=== PATIENT | female | born 1970 | race Caucasian/White ===

== ENCOUNTER 2020-04-23 03:25 | Emergency (ER) | payer OTHER ==
[~2020-04-23] VITALS: Ht 160 cm; Wt 79.6 kg
[2020-04-23 03:26] VITALS: BP 167/92
[2020-04-23] MEDS ORDERED: BOOSTRIX/ADACEL VACCINE (DIPHTH/PERTUSS/ACELL/TETANUS) 0.5ML SYR IM ONE (04:15)
--- NOTE | 2020-04-23 04:26 | REPVR ---
PROCEDURE INFORMATION: Exam: CT Cervical Spine Without Contrast Exam date and time: 04/23/2020 3:48 AM Age: 49 years old Clinical indication: Injury or trauma; Fall; Initial encounter; Blunt trauma TECHNIQUE: Imaging protocol: Computed tomography images of the cervical spine without contrast. Radiation optimization: All CT scans at this facility use at least one of these dose optimization techniques: automated exposure control; mA and/or kV adjustment per patient size (includes targeted exams where dose is matched to clinical indication); or iterative reconstruction. COMPARISON: No relevant prior studies available. FINDINGS: Vertebrae: There is normal alignment of the visualized spine. Discs/Spinal canal/Neural foramina: There is narrowing of the C5-C6 disc with endplate spurs, subchondral sclerosis, and small cystic changes. There is a disc osteophyte complex, asymmetric to the left which does not result in significant spinal canal stenosis but results in neural foraminal narrowing, left more than right. Prevertebral Space: The prevertebral soft tissues appear normal. Soft tissues: The paraspinous soft tissues appear unremarkable. Thyroid: There is a low-attenuation 11 mm nodule in the left lobe of the thyroid. Lungs: The visualized lung apices are clear. IMPRESSION: 1. Normal alignment. No fractures identified. 2. Evidence of degenerative disc disease at C5-C6. 3. 11 mm nodule in the left lobe of the thyroid. No follow-up is recommended for a nodule of this size. COMMENTS: Consistent with the [employer]'s Incidental Findings Committee white paper (J Am Enrique Radiol 2015): In patients aged 35 years and older with an incidental thyroid nodule equal to or greater than 1.[address], MRI or extrathyroidal US, further evaluation with dedicated thyroid US is recommended for patients with normal life expectancy and without comorbidities. For smaller nodules without suspicious features, no further evaluation or follow up is recommended. Electronically signed by: Padmini Mary On 04/23/2020 04:26:09 AM
--- NOTE | 2020-04-23 04:29 | REPVR ---
PROCEDURE INFORMATION: Exam: CT Head Without Contrast Exam date and time: 04/23/2020 3:48 AM Age: 49 years old Clinical indication: Injury or trauma; Fall; Initial encounter; Blunt trauma (contusions or hematomas) TECHNIQUE: Imaging protocol: Computed tomography of the head without contrast. Radiation optimization: All CT scans at this facility use at least one of these dose optimization techniques: automated exposure control; mA and/or kV adjustment per patient size (includes targeted exams where dose is matched to clinical indication); or iterative reconstruction. COMPARISON: No relevant prior studies available. FINDINGS: Limitations: There is artifact affecting the assessment of the posterior fossa. Brain: The cortical/white matter interfaces are preserved throughout the brain. There is no evidence of intracranial hemorrhage. Cerebral ventricles: The ventricular system is normal in size and configuration. Bones/joints: No acute fractures of the skull are identified. Paranasal sinuses: There is minimal mucoperiosteal thickening in the visualized paranasal sinuses. No fluid levels. Mastoid air cells: The mastoid air cells are clear. Soft tissues: There is a large, heterogeneously hyperdense area of soft tissue swelling in the anterior right frontal region, indicating a large superficial hematoma. IMPRESSION: 1. Large right frontal superficial hematoma. 2. No evidence of acute intracranial injury. Electronically signed by: Padmini Mary On 04/23/2020 04:29:14 AM
--- NOTE | 2020-04-24 07:36 | ED PDOC ---
Post-Departure Follow-Up certiifed letter sent to pt re formal read of ct c spine. pt needs fu for thyroi d nodule. please obtain pcp name and fax. if no pcp refer to [facility] and fax Jerome Maldonado MD Apr 24, 2020 07:36
== END 2020-04-23 05:13 | disposition home or self-care (01) ==
LOC: M ED 03:25
DX: S01.01XA Laceration without foreign body of scalp, initial encounter (principal); W10.1XXA Fall (on)(from) sidewalk curb, initial encounter; Y92.410 Unspecified street and highway as the place of occurrence of the external cause; Y93.89 Activity, other specified; Y99.8 Other external cause status; Z88.2 Allergy status to sulfonamides

== ENCOUNTER → 2020-06-09 | Outpatient (CLI) | payer OTHER ==
--- NOTE | 2020-06-09 16:43 | REP ---
INDICATION: E04.1THYROID NODULE. COMPARISON: None FINDINGS: The right lobe of the thyroid gland measures 4.2 x 1.4 x 1.7 cm. The left lobe of the thyroid gland measures 3.9 x 1.8 x 1.2 cm. The isthmus measures 2.9 mm. In the left lobe of the thyroid gland there is a multi septated anechoic structure which measures 1.5 x 1 x 0.8 cm. The lower pole there is a complex 5 x 5.1 x 3.6 mm sized complex appearing cyst. In the midpole/lower pole there is an additional 3 mm sized echogenic focus. In the right lobe of the thyroid gland in the lower pole there is a 3.4 x 3.6 x 1.8 mm sized tiny nodule. Multiple mm sized cystic structures and tiny nodules are seen in both lobes. IMPRESSION: As above. <Electronically signed by Huang Cruz > 06/09/20 [id number]
== END ==
LOC: M WHC 14:50
PROVIDERS: ATTEND Student in an Organized Health Care Education/Training Program
DX: E04.1 Nontoxic single thyroid nodule (principal)

== ENCOUNTER → 2021-02-28 | Outpatient (CLI) | payer BC ==
[~2021-02-28] MED LIST: HYDR-643 PO; LEXA1TAB PO
== END ==
LOC: M WHC 10:21
PROVIDERS: ATTEND Student in an Organized Health Care Education/Training Program
DX: R92.2 Inconclusive mammogram (principal); N60.02 Solitary cyst of left breast

== ENCOUNTER → 2021-03-20 | Outpatient (CLI) | payer BC ==
--- NOTE | 2021-03-20 15:37 | REP ---
INDICATION: ATTN RADIAL HEAD, EVAL FX FOR HEALING. COMPARISON: 09/20/2020 TECHNIQUE: Axial noncontrast images through the elbow with coronal and sagittal reformations. FINDINGS: Previous proximal radial fracture with intra-articular component now demonstrates significant healing and fusion to the radius, but demonstrates a residual 2-3 mm cortical disruption/cleft with sclerotic margins extending through the articular surface. Surrounding soft tissues are relatively normal and without obvious significant residual inflammatory change. No obvious effusion. IMPRESSION: Relatively healed proximal radial fracture with residual formed chronic cleft extending into the central articular surface. <Electronically signed by Levi Moreno > 03/20/21 [id number]
== END ==
LOC: M RAD 15:03
PROVIDERS: ATTEND Orthopaedic Surgery
DX: G56.21 Lesion of ulnar nerve, right upper limb (principal); S52.591D Other fractures of lower end of right radius, subsequent encounter for closed fracture with routine healing; Y92.9 Unspecified place or not applicable; Y93.9 Activity, unspecified; Y99.9 Unspecified external cause status

== ENCOUNTER → 2021-04-19 | Outpatient (CLI) | payer BC ==
[2021-04-19 10:50] LABS: BASO # 0.1 10^3/uL (0.0-0.2); BASO % 1.2 % (0.0-1.0); EOS # 0.2 10^3/uL (0.0-0.5); EOS % 3.6 % (0.0-3.0); HEMATOCRIT 41.8 % (36.0-47.0); HEMOGLOBIN 13.2 g/dl (12.0-15.5); LYMPH # 1.4 10^3/uL (1.5-5.0); LYMPH % 27.5 % (24.0-44.0); MEAN CORPUSCULAR HEMOGLOBIN 27.3 pg (27.0-33.0); MEAN CORPUSCULAR HGB CONC 31.6 g/dl (32.0-36.5); MEAN CORPUSCULAR VOLUME 86.5 fl (80.0-96.0); MONO # 0.3 10^3/uL (0.0-0.8); MONO % 6.4 % (2.0-8.0); NEUTROPHILS # 3.1 10^3/uL (1.5-8.5); NEUTROPHILS % 61.1 % (36.0-66.0); PLATELET COUNT, AUTOMATED 393 10^3/uL (150-450); RED BLOOD COUNT 4.83 10^6/uL (4.00-5.40)
[2021-04-19 11:01] LABS: INR 0.96; PROTHROMBIN TIME 13.2 SECONDS (12.7-14.5)
[2021-04-19 11:02] LABS: PARTIAL THROMBOPLASTIN TIME 31.1 SECONDS (25.9-37.0)
[2021-04-19 11:09] LABS: ALBUMIN 4.4 GM/DL (3.2-5.2); ALT/SGPT 17 U/L (12-78); BILIRUBIN,TOTAL 0.3 MG/DL (0.2-1.0); BLOOD UREA NITROGEN 13 MG/DL (7-18); CALCIUM LEVEL 9.7 MG/DL (8.5-10.1); CARBON DIOXIDE LEVEL 28 MEQ/L (21-32); CHLORIDE LEVEL 106 MEQ/L (98-107); CHOLESTEROL LEVEL 261 MG/DL (<200); CREATININE FOR GFR 0.77 MG/DL (0.55-1.30); GLOMERULAR FILTRATION RATE > 60.0 (>51); GLUCOSE, FASTING 88 MG/DL (70-100); HDL CHOLESTEROL 58 MG/DL (>40); LDL CHOLESTEROL 172 MG/DL (<100); NON-HDL-C 203 MG/DL; POTASSIUM SERUM 4.2 MEQ/L (3.5-5.1); SODIUM LEVEL 139 MEQ/L (136-145); TRIGLYCERIDES LEVEL 155 MG/DL (<150)
== END ==
LOC: M LAB 08:04
PROVIDERS: ATTEND Physician Assistant
DX: D68.59 Other primary thrombophilia (principal); R07.9 Chest pain, unspecified

== ENCOUNTER → 2021-05-09 | Outpatient (CLI) | payer BC | LOC: M LABSMTC 09:59 | PROVIDERS: ATTEND Anesthesiology | DX: Z01.812 Encounter for preprocedural laboratory examination (principal) ==

== ENCOUNTER → 2021-05-25 | Outpatient (CLI) | payer BC | LOC: M OUTALCOH 08:01 | PROVIDERS: ATTEND Psychiatry & Neurology Psychiatry | DX: F10.10 Alcohol abuse, uncomplicated (principal) ==

== ENCOUNTER → 2021-05-29 | Outpatient (REF) | payer BC | LOC: M SFHCPLAZ 09:51 | PROVIDERS: ATTEND Physician Assistant | DX: R39.9 Unspecified symptoms and signs involving the genitourinary system (principal) ==

== ENCOUNTER → 2021-06-26 | Outpatient (RCR) | payer BC | LOC: M OUTALCOH 06-04 15:07 | PROVIDERS: ATTEND Psychiatry & Neurology Psychiatry | DX: F10.10 Alcohol abuse, uncomplicated (principal) ==

== ENCOUNTER → 2021-07-16 | Outpatient (CLI) | payer BC ==
--- NOTE | 2021-07-17 16:11 | REP ---
INDICATION: THYROID NODULES. COMPARISON: None. TECHNIQUE/RADIOTRACER AND DOSE: After the oral administration of 357 uCi of radio iodide 123 a thyroid scan and uptake was performed. FINDINGS: There is symmetric appearing distribution of the radiotracer throughout the thyroid gland. No overactive or underactive foci are identified. The 24 hour uptake is 18.37%. This is below the lower limit of normal of 25%. IMPRESSION: Scintigraphic evidence of hypothyroidism as described above. <Electronically signed by Huang Cruz > 07/17/21 [id number]
== END ==
LOC: M RAD 13:45
PROVIDERS: ATTEND Student in an Organized Health Care Education/Training Program
DX: E03.9 Hypothyroidism, unspecified (principal); E04.1 Nontoxic single thyroid nodule
CPT/HCPCS: 78012; A9516

== ENCOUNTER → 2021-07-23 | Outpatient (CLI) | payer BC ==
[2021-07-23 17:28] LABS: FREE T4 0.95 NG/DL (0.76-1.46); THYROID STIMULATING HORMONE 1.48 uIU/ML (0.358-3.740)
[2021-07-23 17:34] LABS: TOTAL T3 67.1 NG/DL (60.0-181.0)
== END ==
LOC: M PLALAB 14:56
PROVIDERS: ATTEND Student in an Organized Health Care Education/Training Program
DX: E04.1 Nontoxic single thyroid nodule (principal)

== ENCOUNTER 2021-07-25 16:00 | Outpatient (RCR) | payer BC | END 2021-07-27 | LOC: M OUTALCOH 16:00 | PROVIDERS: ATTEND Psychiatry & Neurology Psychiatry | DX: F10.20 Alcohol dependence, uncomplicated (principal) ==

== ENCOUNTER 2021-08-22 16:00 | Outpatient (RCR) | payer BC | END 2021-08-27 | LOC: M OUTALCOH 16:00 | PROVIDERS: ATTEND Psychiatry & Neurology Psychiatry | DX: F10.20 Alcohol dependence, uncomplicated (principal) ==

== ENCOUNTER → 2021-08-22 | Outpatient (CLI) | payer BC ==
[2021-08-22 11:20] LABS: BASO # 0.1 10^3/uL (0.0-0.2); BASO % 1.2 % (0.0-1.0); EOS # 0.2 10^3/uL (0.0-0.5); EOS % 3.6 % (0.0-3.0); HEMOGLOBIN 9.9 g/dl (12.0-15.5); LYMPH % 29.6 % (24.0-44.0); MEAN CORPUSCULAR HEMOGLOBIN 21.6 pg (27.0-33.0); MEAN CORPUSCULAR HGB CONC 29.1 g/dl (32.0-36.5); MEAN CORPUSCULAR VOLUME 74.2 fl (80.0-96.0); MONO # 0.4 10^3/uL (0.0-0.8); MONO % 6.6 % (2.0-8.0); NEUTROPHILS # 3.9 10^3/uL (1.5-8.5); NEUTROPHILS % 58.8 % (36.0-66.0); PLATELET COUNT, AUTOMATED 520 10^3/uL (150-450); RED BLOOD COUNT 4.58 10^6/uL (4.00-5.40); WHITE BLOOD COUNT 6.7 10^3/uL (4.0-10.0)
[2021-08-22 11:25] LABS: APPEARANCE, URINE HAZY (CLEAR); BACTERIA, URINE AUTO 1+ (NEGATIVE); BILIRUBIN, URINE AUTO NEGATIVE (NEGATIVE); BLOOD, URINE BLOOD NEGATIVE (NEGATIVE); COLOR, URINE YELLOW (YELLOW); GLUCOSE, URINE (UA) AUTO NEGATIVE (NEGATIVE); KETONE, URINE AUTO NEGATIVE (NEGATIVE); LEUKOCYTE ESTERASE, URINE AUTO NEGATIVE (NEGATIVE); NITRITE, URINE AUTO NEGATIVE (NEGATIVE); PROTEIN, URINE AUTO NEGATIVE (NEGATIVE); RBC, URINE AUTO 1 /HPF (0-3); SPECIFIC GRAVITY URINE AUTO 1.004 (1.002-1.035); SQUAMOUS EPITHELIAL CELL UR AU 0 /HPF (0-6); UROBILINOGEN, URINE AUTO 0.2 mg/dL (0.0-2.0); WBC, URINE AUTO 0 /HPF (0-3)
[2021-08-22 12:37] LABS: BLOOD UREA NITROGEN 13 MG/DL (7-18); CALCIUM LEVEL 9.5 MG/DL (8.5-10.1); CARBON DIOXIDE LEVEL 27 MEQ/L (21-32); CHLORIDE LEVEL 104 MEQ/L (98-107); CREATININE FOR GFR 0.83 MG/DL (0.55-1.30); FERRITIN < 3 NG/ML (8-252); GLOMERULAR FILTRATION RATE > 60.0 (>51); GLUCOSE, FASTING 93 MG/DL (70-100); IRON (FE) 22 UG/DL (50-170); PHOSPHORUS LEVEL 4.1 MG/DL (2.5-4.9); POTASSIUM SERUM 4.8 MEQ/L (3.5-5.1); PTH INTACT 24.6 PG/ML (18.5-88.0); SODIUM LEVEL 137 MEQ/L (136-145); TOTAL 25(OH) VITAMIN D 59.7 NG/ML (30.0-100.0); TOTAL IRON BINDING CAPACITY 444 UG/DL (250-450)
== END ==
LOC: M PLALAB 08:14
PROVIDERS: ATTEND Student in an Organized Health Care Education/Training Program
DX: D64.9 Anemia, unspecified (principal)

== ENCOUNTER → 2021-09-13 | Outpatient (CLI) | payer BC | LOC: M LABSMTC 10:26 | PROVIDERS: ATTEND Anesthesiology | DX: Z01.812 Encounter for preprocedural laboratory examination (principal); Z11.52 Encounter for screening for COVID-19 ==

== ENCOUNTER → 2021-09-24 | Outpatient (RCR) | payer BC | LOC: M OUTALCOH 15:08 | PROVIDERS: ATTEND Psychiatry & Neurology Psychiatry | DX: F10.20 Alcohol dependence, uncomplicated (principal) ==

== ENCOUNTER → 2021-09-24 | Outpatient (RCR) | payer BC | LOC: M OUTALCOH 08-29 15:01 | PROVIDERS: ATTEND Psychiatry & Neurology Psychiatry | DX: F10.20 Alcohol dependence, uncomplicated (principal) ==

== ENCOUNTER → 2021-10-16 | Outpatient (CLI) | payer BC | LOC: M PLALAB 15:09 | PROVIDERS: ATTEND Psychiatry & Neurology Psychiatry | DX: F10.20 Alcohol dependence, uncomplicated (principal) ==

== ENCOUNTER 2021-10-23 14:00 | Outpatient (RCR) | payer BC | END 2021-10-25 | LOC: M OUTALCOH 14:00 | PROVIDERS: ATTEND Psychiatry & Neurology Psychiatry | DX: F10.20 Alcohol dependence, uncomplicated (principal) ==

== ENCOUNTER 2021-10-29 14:46 | Outpatient (RCR) | payer BC ==
[2021-10-30] MEDS ORDERED: BUSP10TA PO (11:34)
[2021-10-30] MEDS ORDERED: IRON65TA2 PO (11:34)
== END 2021-11-24 ==
LOC: M OUTALCOH 14:46
PROVIDERS: ATTEND Psychiatry & Neurology Psychiatry
DX: F10.20 Alcohol dependence, uncomplicated (principal)

== ENCOUNTER → 2021-11-08 | Outpatient (CLI) | payer BC ==
[~2021-11-08] MED LIST changes: +BUSP10TA PO; +IRON65TA2 PO
== END ==
LOC: M LABSMTC 09:57
PROVIDERS: ATTEND Anesthesiology
DX: Z01.812 Encounter for preprocedural laboratory examination (principal); Z20.822 Contact with and (suspected) exposure to COVID-19

== ENCOUNTER 2021-11-13 07:38 | Day surgery (SDC) | payer BC ==
[~2021-11-13] VITALS: Ht 160 cm; Wt 62.1 kg
[~2021-11-13 07:38] MED LIST changes: +NS 1,000 ML IV ONE
[2021-11-13] MEDS ORDERED: LIDOCAINE 2% 100MG/5ML SDV (FOR ANES.) As Ordered ONE (08:53)
[2021-11-13] MEDS ORDERED: propofoL 200 MG/20 ML VIAL As Ordered ONE ×2 (08:53→09:05)
[2021-11-13 09:50] VITALS: BP 109/57
== END 2021-11-13 09:52 | disposition home or self-care (01) ==
LOC: M OPP 07:38
PROVIDERS: ATTEND Internal Medicine Gastroenterology
DX: Z12.11 Encounter for screening for malignant neoplasm of colon (principal); K63.5 Polyp of colon; K64.8 Other hemorrhoids; Q43.8 Other specified congenital malformations of intestine; Z79.899 Other long term (current) drug therapy; Z88.2 Allergy status to sulfonamides